=== PATIENT | male | born 1945 | race Caucasian/White ===

== ENCOUNTER → 2022-06-11 | Outpatient (CLI) | payer MEDICARE, SELFPAY ==
[2022-06-11 11:25] LABS: PSA,Total - Annual Screen 2.23 ng/mL (0.00-4.00)
== END | disposition home or self-care (01) ==
LOC: LAB 10:13
PROVIDERS: PCP Family Medicine; Referring Provider Urology; Visit Provider Urology
DX: Z12.5 Encounter for screening for malignant neoplasm of prostate (principal)
CPT/HCPCS: 36415; 84153; G0103